=== PATIENT | male | born 1940 | race Caucasian/White ===

== ENCOUNTER 2021-09-20 14:01 | Emergency (ER) | payer MEDICARE, BC ==
[~2021-09-20] VITALS: Ht 188 cm; Wt 80.0 kg
--- NOTE | 2021-09-20 14:29 | NUR ---
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
--- NOTE | 2021-09-20 14:40 | NUR ---
IR TEAM HERE WITH THE PROVIDER ,TAKEN THE TDC OUT .NO BLEEDING ,DRESSING PLACED BY THE IR STAFF .ECHO STILL AT BEDSIDE.
--- NOTE | 2021-09-20 15:04 | NUR ---
rt at bedside.
--- NOTE | 2021-09-20 16:00 | NUR ---
NOTIFIED INDU COLLAZO THAT PT BLD PRESSURE IS 90/49. PER MD GIVE NS 250 ML BOLUS ONCES.PT HAD DIALYSIS AND PER PROVIDER IT COULD BE RELATED TO THAT.
[2021-09-20] MEDS ORDERED: normal saline 250ml IV soln 250 ML IV ONE (16:10)
[2021-09-20 18:00] VITALS: BP 98/62
--- NOTE | 2021-09-20 18:00 | NUR ---
NOTIFIED INDU COLLAZO THAT PT HAS COUPLE OF PVC , PER MD NOT TO BE CONCERN OF.
--- NOTE | 2021-09-20 18:38 | NUR ---
Pt is on a vent/trach: AC=16, ED=695, FiO2=28, Peep=6. Pt is not responsive.
--- NOTE | 2021-09-20 19:04 | NUR ---
Report given to NAZ Agudelo at [facility].
== END 2021-09-20 19:30 ==
LOC: ER 14:02
DX: J80 Acute respiratory distress syndrome (principal); R40.3 Persistent vegetative state; I48.91 Unspecified atrial fibrillation; I10 Essential (primary) hypertension; Z98.890 Other specified postprocedural states
CPT/HCPCS: 36589; 82948; 93306; 99291; J7050